=== PATIENT | male | born 1960 | race Caucasian/White ===

== ENCOUNTER 2025-02-26 08:55 | Outpatient (OUT) | payer OTHER, SELFPAY ==
[2025-02-26 09:22] LABS: Basophils Absolute Auto 0.1 10^3/uL (0.0-0.1); Basophils Percent Auto 0.6 % (0.2-2.0); Eosinophils Absolute Auto 0.2 10^3/uL (0.0-0.7); Eosinophils Percent Auto 2.3 % (0.9-7.0); Hematocrit 47.2 % (42.0-54.0); Hemoglobin 15.6 g/dL (14.0-18.0); Immature Granulocytes Abs Auto 0.04 10^3/uL (0.00-0.03); Immature Granulocytes Pct Auto 0.4 % (0.0-0.5); Lymphocytes Absolute Auto 2.1 10^3/uL (1.2-3.8); Lymphocytes Percent Auto 21.6 % (20.5-60.0); Mean Corpuscular HGB Conc 33.1 g/dL (29.9-35.2); Mean Corpuscular Hemoglobin 31.2 pg (25.9-34.0); Mean Corpuscular Volume 94.4 fL (80.0-94.0); Monocytes Absolute Auto 0.7 10^3/uL (0.3-0.8); Neutrophils Absolute Auto 6.6 10^3/uL (1.4-6.5); Neutrophils Percent Auto 68.1 % (43.0-75.0); Platelet Count 274 10^3/uL (150-450); Red Cell Distribution Width 13.1 % (11.0-15.0); White Blood Count 9.6 10^3/uL (4.0-11.0)
[2025-02-26] MEDS: ALBUTEROL SULFATE 2.5 MG/3 ML VIAL NEB IH (09:54)
--- NOTE | 2025-02-26 10:05 | RT_ITS ---
The [facility] Test Date: 2025-02-26 Pat Name: YUNG RICHARDSON Department: Room: - Gender: Male Test Manager: Jean Garcia RRT : 1960 Requested By: Roosevelt Murray Order Number: [id number] Reading MD: Roosevelt Murray Interpretive Statements Pulmonary function testing was completed according to ATS criteria. Findings were considered accurate and reproducible. Both pre- and post-bronchodilator values utilized for spirometry. Spirometry (based on pre-bronchodilator values): -FEV1/FVC: Reduced @ 64% -FEV1: Moderately reduced @ 54% -FVC: Reduced @ 63% -AHQ59-35%: Reduced @ 36% -There is a positive bronchodilator response in FEV1 and FVC. Lung volumes by plethysmography (based on pre-bronchodilator values): -RV: Increased @ 149% -TLC: Normal @ 97% Diffusion capacity: -DLCO: Moderate reduction @ 54% when corrected for Hb 15.6g/dL Flow-volume loop: -Moderately-severe obstructive pattern Impressions: -Spirometry suggests moderate obstruction. There is a positive bronchodilator response. An elevated RV suggests air trapping. There is a moderately reduced diffusion capacity. Overall study suggests asthma-COPD overlap or COPD with a bronchodilator response. Clinical correlation required. Electronically Signed On 02-27-2025 8:08:33 EDT by Roosevelt Murray
[2025-03-07 17:08] LABS: Immunoglobulin E, Total 202 IU/mL (6-495)
== END 2025-02-26 08:56 | disposition home or self-care (01) ==
LOC: CARD 08:58
PROVIDERS: PCP Family Medicine; Visit Provider Internal Medicine
DX: R05.3 Chronic cough (principal); F17.210 Nicotine dependence, cigarettes, uncomplicated
CPT/HCPCS: 36415; 82785; 85025; 94060; 94726; 94729; 99406

== ENCOUNTER 2025-03-04 12:34 | Outpatient (OUT) | payer OTHER, SELFPAY ==
--- NOTE | 2025-03-04 12:38 | CT_ITS ---
The [address] [address] Patient Name: YUNG RICHARDSON MRN: [id number] date: 1960 Sex: M Assigned Patient Location: CT Current Patient Location: CT Accession/Order Number: [id number] Exam Date: 03/04/2025 13:34 Report Date: 03/04/2025 13:37 At the request of: JENELLE DEE DO Procedure: CT chest high res CT Chest high resolution without contrast TECHNIQUE: Axial imaging with 2-D reconstruction. The CT exam was performed using one or more the following dose reduction techniques: Automated exposure control, adjustment of the MA and/or Kv according to patient size, or use of the iterative reconstruction technique. History: Chronic cough. Fatigue COMPARISON: None THYROID: Unremarkable TRACHEA AND BRONCHI: Patent ESOPHAGUS: Unremarkable. HEART: Within normal limits PERICARDIAL EFFUSION: None CORONARY ARTERY CALCIFICATION: None MEDIASTINUM: No adenopathy. No pneumoperitoneum. No mediastinal hematoma. PULMONARY ANTHONY: No hilar mass or adenopathy is seen. THORACIC AORTA Unremarkable LUNG NODULE None LUNGS: The basilar linear atelectasis/scarring. No groundglass consolidation. No reticulonodular densities. PLEURAL EFFUSION: None PNEUMOTHORAX: No pneumothorax seen. CHEST WALL: No abnormality AXILLA:Unremarkable BONY STRUCTURES Intact UPPER ABDOMEN: Hepatic steatosis. CT/CT chest high res IMPRESSION: Basilar linear atelectasis/scarring. No acute interstitial lung disease. Impression dictated by: Dariel Batista M.D.03/04/2025 1:37 PM Dictation Location: [place] [address] Electronically authenticated by: [id number] Y Date: 03/04/2025 13:37
== END 2025-03-04 12:35 | disposition home or self-care (01) ==
LOC: CT 12:34
PROVIDERS: PCP Family Medicine; Visit Provider Internal Medicine
DX: R05.3 Chronic cough (principal)
CPT/HCPCS: 71250

== ENCOUNTER 2025-05-20 11:17 | Outpatient (OUT) | payer OTHER, SELFPAY ==
--- OUTSIDE RECORDS SUMMARY | 2025-02-20 10:32 | XMS_ITS ---
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 Name Role Phone NEHA HARPER Referring Unavailable NEHA HARPER Primary Care Unavailable Neha Harper Admitting Unavailable Neha Harper Primary Care Unavailable Neha Harper Attending Unavailable Neha Harper Primary Care Unavailable Izabella Figueroa Admitting Unavailable Izabella Figueroa Attending Unavailable Neha Harper Admitting Unavailable Neha Harper Primary Care Unavailable Neha Harper Attending Unavailable Izabella Figueroa Attending Unavailable NON STAFF Primary Care Unavailable Izabella Figueroa Admitting Unavailable PROBLEMS DATE TYPE CONDITION / CODE ATTENDING STATUS [facility] 02/20/2025 Unknown Cardiac arrhythm ia, unspecified / I49.9(ICD-10) Neha Harper [facility] 02/11/2025 Unknown Acute sinusitis, unspecified / J01.90(ICD-10) Neha Harper [facility] 01/25/2025 Unknown Cough, unspecifi ed / R05.9(ICD-10) Izabella Figueroa [facility] 11/15/2024 Unknown Other long term care social worker (current) drug therapy / Z79.899(ICD-10) NA [facility] 11/15/2024 Unknown Hyperlipidemia, unspecified / E78.5(ICD-10) [facility] 11/15/2024 Unknown Hyperglycemia, unspecified / R73.9(ICD-10) [facility] 11/15/2024 Unknown Nocturia / R35.1(ICD-10) [facility] 11/15/2024 Unknown Abnormal weight loss / R63.4(ICD-10) [facility] PROCEDURES No Procedure Records Found RESULTS COMPREHENSIVE METABOLIC PANEL Collected: 02/20/2025 1 0:43 AM Status: F Source: [facility] TYPE CODE TESTS RESULT OUT OF RANGE REFERENCE UNITS LAB GLU Glucose 149 High 70-100 mg/dL Result Comment: Random Gluco se Reference Range is dependent on time and content of last meal. Glucose of more than 200 mg/dL in a nonstressed, ambulatory subject supports the diagnosis of Diabetes Mellitus. ADA recommended reference range LAB BUN Blood Urea Nitrogen 10 Normal 7-25 mg/d L LAB CREATT Creatinine 0.87 Normal 0.70-1.30 mg/dL LAB GFReNR Estimated GFR >60.0 mL/Min LAB NA Sodium 141 Normal 136-145 mmol/L LAB K Potassium 4.2 Normal 3.5-5.1 mmol/L LAB CL Chloride 106 Normal 98-107 mmol/L LAB CO2 Carbon Dioxide 28.0 Normal 21.0-31.0 mmol/L LAB GAP Anion Gap 11.2 Normal 6.0-15.0 meq/L LAB CA Calcium 9.5 Normal 8.6-10.3 mg/dL LAB TP Total Protein 6.8 Normal 6.4-8.9 g/dL LAB ALB Albumin Level 4.2 Normal 3.5-5.7 g/dL LAB GLOB Globulin 2.6 g/dL LAB AGRATIO Albumin/Globulin Ratio 1.6 LAB BILIT Bilirubin,Total 0.5 Normal 0.3-1.0 mg/dL LAB AST Aspartate Amino Transferase 42 High 13-39 U/L LAB ALT Alanine Aminotransferase 53 High 7-52 U/L LAB ALP Alkaline Phosphatase 65 Normal 34-104 U/L Result Comment: PERFORMED BY : [facility] [place] [address] PATHOLOGIST CRAFT DEMONSTRATOR LEOPOLDO BOSS M.D. Performed By: #### CMP #### [address] ECG 12 LEAD ECG Observed: 02/20/2025 10:38 AM Status: COMPLETED Source: [place] [address] Electrocardiograph Report Signed Patient: Guy Talavera V MR#: [id number] 1837 : 1960 Acct:[id number] Age/Sex: 64 / M ADM Date: 02/20/25 [facility]: [facility]: [facility]: Neha Harper DO Ordering Provider: Neha Harper DO Date of Service: 02/20/25/ ECG/ECG 12 lead ECG: N/S Copies to: Test Reason : Blood Pressure : */* mmHG Vent. Rate : 74 BPM Atrial Rate : 74 BPM P-R Int : 152 ms QRS Dur : 140 ms QT Int : 420 ms P-R-T Axes : 61 -35 49 degrees QTcB Int : 466 ms Sinus rhythm with occasional premature ventricular complexes Left axis deviation Right bundle branch block Abnormal ECG Confirmed by Vivi Mejia ([id number]) on 02/20/2025 1:39:12 PM Referred By: Electronically Signed By: Vivi Mejia Transcribed By: MUS Signed By Vivi Mejia MD [address] SINUS WO CON Observed: 02/11/2025 1:16 PM Status: COMPLETED Source: [facility] [address] CT Scan Report Signed Patient: Guy Talavera V MR#: [id number] 1837 : 1960 Acct:[id number] Age/Sex: 64 / M ADM Date: 02/11/25 Loc: [facility] Room: [facility] Dr: Neha Harper DO Copies to: Neha Harper DO Ordering Provider: Neha Harper DO Date of Service: 02/11/25 CT/CT sinus wo con: J01.90 - Acute sinusitis, unspecified CT PARANASAL SINUSES WITHOUT CONTRAST: CLINICAL HISTORY: Acute sinus disease. COMPARISON: None TECHNIQUE: Contiguous axial unenhanced images were obtained through the paranasal sinuses. Coronal reconstructions were also performed. This CT exam was performed using one or more following dose reduction techniques: Automated exposure control, adjustment of the mA and/or kV according to patient size, or use of iterative reconstruction technique. FINDINGS: Frontal ethmoid sphenoid and maxillary sinuses are clear. Ostiomeatal complexes are patent. No bony destruction or air-fluid levels. Mastoid or cells are well pneumatized. No soft tissue swelling. Intraorbital contents appear unremarkable. Nasopharynx appears unremarkable. CT/CT sinus wo con IMPRESSION: NO EVIDENCE OF INFLAMMATORY DISEASE Impression dictated by: Guy Mariee Jr., D.O.02/11/2025 1:18 PM Dictation Location: [place] [address] Transcribed By: [facility] 02/11/25 1318 Dictated By: Guy Mariee Jr, DO 02/11/25 1316 Signed By: <Electronically signed by Guy Mariee Jr, DO in OV> 02/11/25 1318 XR CHEST 2V* Observed: 01/25/2025 11:51 AM Status: COMPLETED Source: [facility] [place] [address] XRay Report Signed Patient: Guy Talavera V MR#: [id number] 1837 : 1960 Acct:[id number] Age/Sex: 64 / M ADM Date: 01/25/25 Loc: [facility] Room: [facility] Attending Dr: Izabella Figueroa APRN Copies to: Izabella Figueroa APRN Ordering Provider: Izabella Figueroa APRN Date of Service: 01/25/25 XR/XR chest 2V*: COUGH Chest 2 views CLINICAL HISTORY: Cough for the shortness of breath for 2 months. COMPARISON: None FINDINGS: Heart normal in size. No consolidation pneumothorax pleural effusion or free air. XR/XR chest 2V* IMPRESSION: NO ACUTE CARDIOPULMONARY ABNORMALITY. Impression dictated by: Guy Mariee Jr. D.O.01/25/2025 11:52 AM Dictation Location: [place] [address] Transcribed By: [facility] 01/25/25 1152 Dictated By: Guy Mariee Jr, DO 01/25/25 1151 Signed By: <Electronically signed by Guy Mariee Jr, in OV> 01/25/25 1152 CBC AND AUTO DIFF Collected: 11/15/2024 9:56 AM Status: COMPLETED Source: [facility] TYPE CODE TESTS RESULT OUT OF RANGE REFERENCE UNITS LAB WBC(LOINC) WBC COUNT 8.2 4.0-11.0 X10E9/L LAB RBC(LOINC) RBC COUNT 4.73 4.10-5.70 X10E12/L LAB HGB(LOINC) HEMOGLOBIN 15.2 13.0-17.0 g/dL LAB HCT(LOINC) HEMATOCRIT 44.4 39-49 % LAB MCV(LOINC) MCV 94 80-100 fL LAB MCH(LOINC) MCH 32.2 27-34 pg LAB MCHC(LOINC) MCHC 34.3 32-36 g/dL LAB RDW(LOINC) RDW 14.3 11.5-15.0 % LAB PLTC(LOINC) PLATELET COUNT 267 150-450 X10E9 /L LAB MPV(LOINC) MPV 8.5 7-12 fL LAB NEUT(LOINC) % NEUTROPHILS 55.2 % LAB LYMP(LOINC) % LYMPHOCYTES 32.4 % LAB MONO(LOINC) % MONOCYTES 8.9 % LAB EOS(LOINC) % EOSINOPHILS 1.8 % LAB BASO(LOINC) % BASOPHILS 1.7 % LAB ANEUT(LOINC) ABSOLUTE NEUTROPHIL 4.5 1.5-6.6 X10E9/L LAB ALYMP(LOINC) ABSOLUTE LYMPHOCYTE 2.7 1.0-3.5 X10E9/L LAB AMONO(LOINC) ABSOLUTE MONOCYTE 0.7 0-0.9 X10E9/L LAB AEOS(LOINC) ABSOLUTE EOSINOPHIL 0.2 0.0-0.4 X10E9/L LAB ABASO(LOINC) ABSOLUTE BASOPHIL 0.1 0.0-0.2 X10E9/L Performed By: #### CBCA, CMP , 18856-0, HA1C, 2857-1, 3016-3 #### [facility] ([id number]) [address], [address] [place] [address] COMPREHENSIVE METABOLIC PANEL Collected: 2024 9:56 AM Status: COMPLETED Source: [facility] TYPE CODE TESTS RESULT OUT OF RANGE REFERENCE UNITS LAB NA(LOINC) SODIUM 144 134-146 mmol/L LAB K(LOINC) POTASSIUM 4.1 3.5-5.0 mmol/L LAB CL(LOINC) CHLORIDE 109 98-109 mmol/L LAB CO2(LOINC) CARBON DIOXIDE 26 22-32 mmol/L LAB AGAP(LOINC) ANION GAP 9 5-15 mmol/L LAB BUN(LOINC) BLOOD UREA NITROGEN 20 5-27 mg/dL LAB CRET(LOINC) CREATININE 0.90 0.60-1.30 mg/dL Result Comment: METHOD TRACE ABLE TO IDMS STANDARD LAB GLU(LOINC) GLUCOSE 127 High 65-99 mg/dL LAB CA(LOINC) CALCIUM 9.0 8.5-10.5 mg/dL LAB TP(LOINC) TOTAL PROTEIN 6.9 6.0-8.0 g/dL LAB ALB(LOINC) ALBUMIN 4.1 3.2-5.3 g/dL LAB ALK(LOINC) ALKALINE PHOSPHATASE 67 39-130 U/L LAB AST(LOINC) AST 34 0-41 U/L LAB ALT1(LOINC) ALT 48 High 0-40 U/L LAB TBIL(LOINC) BILIRUBIN,TOTAL 0.5 0.3-1.2 mg/d L LAB EGFR(LOINC) eGFR (CKD-EPI) NON-RACE DEPENDENT >90 >59 ml/min/1 .73sq.m Result Comment: Reported eGFR is based on the CKD-EPI 202 equation that does not use a race coefficient. Performed By: #### CBCA, CMP , 77668-2, HA1C, 2857-1, 3016-3 #### [facility] ([id number]) [address] [place] [address], [address] [place] [address] LIPID PROFILE Collected: 11/15/2024 9:56 AM Status: COMPLETED Source: [facility] TYPE CODE TESTS RESULT OUT OF RANGE REFERENCE UNITS LAB CHOL(LOINC) CHOLESTEROL 124 Low 150-200 mg/dL LAB TRIG(LOINC) TRIGLYCERIDE 157 High 27-150 mg/dL LAB HDL(LOINC) HDL CHOLESTEROL 33 Low >39 mg/dL Result Comment: HDL <40 mg/dL - High Risk HDL > or = 40mg/dL- Desirable HDL >60 mg/dL - Negative Risk LAB VLDL(LOINC) VERY LOW LIPOPROTEIN 31 High 0-30 mg/dL LAB LDL(LOINC) LDL (CALC) 60 <130 mg/dL Result Comment: LDL <100 mg/dL - Desirable LDL >160 mg/dL - High Risk LAB CHDL(LOINC) CHOLESTEROL:HDL 3.8 1.0-5.0 Performed By: #### CBCA, CMP , 02537-1, HA1C, 8957-1, 5756-3 #### [facility] ([id number]) [address] [place] [address], [address] [place] [address] HGB A1C (GLYCO-HGB) Collected: 11/15/2024 9:56 AM Status: COMPLETED Source: [facility] TYPE CODE TESTS RESULT OUT OF RANGE REFERENCE UNITS LAB HBA1C(LOINC) HEMOGLOBIN A1C 6.5 High 4.4-5.6 % Result Comment: NOTE ADA Guidelines Result HgbA1c Normal : less than 5.7 % Prediabetes : 5.7 % to 6.4 % Diabetes : > 6.4 % Use with caution in patients with abnormal hemoglobin variants as the half-life of red blood cells and in vivo glycation rates are affected. LAB EAG(LOINC) AVERAGE GLUCOSE 140 mg/dL Performed By: #### CBCA, CMP , 96949-9, HA1C, 2857-1, 3016-3 #### [facility] ([id number]) [address] [place] [address], [address] [place] [address] PROSTATIC SPEC ANT Collected: 9:56 AM Status: COMPLETED Source: [facility] TYPE CODE TESTS RESULT OUT OF RANGE REFERENCE UNITS LAB PSA(LOINC) PROSTATIC SPEC ANT 0.69 0.00-4.00 ng/mL Result Comment: The method used for this test is Juan Cha DXI chemiluminescent immunoassay. Values obtained by different assay methods cannot be used interchangeably. Performed By: #### CBCA, CMP , 79373-6, HA1C, 2857-1, 3016-3 #### [facility] ([id number]) [address] [place] [address], [address] [place] [address] TSH Collected: 11/15/2024 9:56 AM S tatus: COMPLETED Source: [facility] TYPE CODE TESTS RESULT OUT OF RANGE REFERENCE UNITS LAB TSH(LOINC) TSH 1.91 0.49-4.67 uIU/mL Performed By: #### CBCA, CMP , 29379-3, HA1C, 2857-1, 3016-3 #### [facility] ([id number]) [address] [place] [address], [address] [place] [address] ALLERGIES DATE TYPE / CODE NAME / CODE REACTION SEVERITY SOURCE 01/28/2025 Drug Allergy/745400 002(SNOMED CT) penicillin V/U453621123(RXNORM) Anaphylaxis Unknown [facility] 09/06/2018 Drug Class~NON-CBOR D/882225061(SN OMED CT) P[facility] ENCOUNTERS ADMIT/DISCHARGE ACCOUNT NUMBER ADMITTING ENCOUNTER CLASS LOCATION SOURCE 02/20/2025/02/21/20 25 [id number] [facility] 02/11/2025/02/12/20 [id number] [facility] 01/25/2025/01/26/20 [id number] [facility] 01/25/2025 [id number] [facility] 11/15/2024/11/15/19 [id number] Ambulatory Building:PF _LAB [facility] PAYERS ENCOUNTER GUARANTOR PAYER SUBSCRIBER SOURCE 02/20/2025 [address] [place] [address]Cjy: (HP) Primary Insurance:Lora Rodriguez MCRPolicy Number: [id number] ve Date:[id number] [address]RR: Guy AlcazarB: [id number] [place] [address]Wnc: (HP) [facility] 02/20/2025 Secondary Insurance:Self PayPolicy Number: Effective Date:2025-02-19 [facility]2025 Guy [address] [place] [address]Mgn: (HP) Primary Insurance:Lora Rodriguez MCRPolicy Number: [id number] ve Date:[id number] [address]NW: Guy AlcazarB: [id number] [place] [address]Nqo: (HP) [facility] 02/11/2025 Secondary Insurance:Self PayPolicy Number: Effective Date:2025-02-09 [facility] 01/25/2025 Guy [address] [place] [address]Kud: (HP) Primary Insurance:Lora Rodriguez MCRPolicy Number: [id number] ve Date:[id number]em[employer] foundationRODOLFO soni [address]GB: Guy AlcazarB: [id number] [place] [address]Adh: (HP) [facility] 01/25/2025 Secondary Insurance:Self PayPolicy Number: Effective Date:2025-01-25 NOT GIVENUNK [facility] 01/25/2025 dannie [id number] [place], [place] [address]Aoi: (HP) Primary Insurance:Medicare Policy Number: [id number] tive Date:2025-01-25 dannie Perez: [id number] [place], [place] [address]Fhc: (HP) [facility] 01/25/2025 Secondary Insurance:Self PayPolicy Number: Effective Date:2025-01-25 NOT GIVENUNK [facility] 11/15/2024 GUY PEREZ: [place], [place] [address]Njy: (HP) Primary Insurance:[facility] ADVPolicy Number: [id number] ve Date:2024-11-14 GUY ALCAZARB: [id number] [place], [place] [address]Xun: (HP) [facility]
[2025-05-20 11:45] LABS: Hematocrit 47.0 % (42.0-54.0); Hemoglobin 15.7 g/dL (14.0-18.0); Immature Granulocytes Abs Auto 0.04 10^3/uL (0.00-0.03); Immature Granulocytes Pct Auto 0.4 % (0.0-0.5); Lymphocytes Absolute Auto 2.0 10^3/uL (1.2-3.8); Mean Corpuscular HGB Conc 33.4 g/dL (29.9-35.2); Mean Corpuscular Hemoglobin 30.8 pg (25.9-34.0); Mean Corpuscular Volume 92.2 fL (80.0-94.0); Platelet Count 271 10^3/uL (150-450); Red Blood Count 5.10 10^6/uL (4.70-6.10); White Blood Count 9.4 10^3/uL (4.0-11.0)
[2025-05-20 11:46] LABS: Glucose Urine UA NEGATIVE (NEGATIVE)
[2025-05-20 12:12] LABS: Alanine Aminotransferase 95 U/L (16-63); Albumin Globulin Ratio 1.1; Albumin Level 4.0 g/dL (3.4-5.0); Alkaline Phosphatase 69 U/L (46-116); Anion Gap 19.0; Aspartate Amino Transferase 88 U/L (15-37); Blood Urea Nitrogen 19.0 mg/dL (7.0-18.0); Calcium 9.4 mg/dL (8.5-10.1); Carbon Dioxide 22.9 mmol/L (21.0-32.0); Chloride 108 mmol/L (98-107); Cholesterol 127 mg/dL (<=200); Estimated GFR (African America >60 (>=60 mL/min/1.73m^2); Estimated GFR (Non-African Ame >60 (>=60 mL/min/1.73m^2); Globulin 3.5 g/dL; Glucose 153 mg/dL (74-106); HDL Cholesterol 38 mg/dL (40-60); Potassium 3.9 mmol/L (3.5-5.1); Sodium 146 mmol/L (136-145); Total Protein 7.5 g/dL (6.4-8.2); Triglycerides 201 mg/dL (<=150); VLDL CHOLESTEROL 40.2 mg/dL
== END 2025-05-20 11:18 | disposition home or self-care (01) ==
LOC: LAB 11:19
PROVIDERS: PCP Family Medicine; Visit Provider Family Medicine
DX: E78.5 Hyperlipidemia, unspecified (principal); Z79.899 Other long term (current) drug therapy; R73.9 Hyperglycemia, unspecified; R35.1 Nocturia
CPT/HCPCS: 36415; 80053; 80061; 81003; 83036; 85025; 87086